=== PATIENT | female | born 1950 | race African-American/Black ===

== ENCOUNTER 2023-09-14 13:31 | Inpatient (IN) | payer MEDICARE, MEDICAID ==
[~2023-09-14] VITALS: Ht 160 cm; Wt 75.0 kg
[2023-09-14] MEDS ORDERED: ALBUTEROL (0.083%) 2.5MG/3ML NEB HHN STA (14:11)
[2023-09-14] MEDS ORDERED: METHYLPREDNISOLONE SOD SUCC 125MG/2ML (ACT-O-VIAL) IV STA (14:11)
[2023-09-14] MEDS ORDERED: IPRATROPIUM BROMIDE (0.02%) 0.5MG/2.5ML NEB HHN STA (14:11)
[2023-09-14] MEDS ORDERED: ASPIRIN 81MG TABLET PO ONE (14:15)
[2023-09-14] MEDS ORDERED: AMLODIPINE 10MG TABLET PO ONE (14:15)
[2023-09-14] MEDS ORDERED: AMLODIPINE 5MG TABLET PO NR (14:18)
[2023-09-14 14:35] VITALS: PULSE 104; RESP 24; O2SAT 99
[2023-09-14 15:56] LABS: BASOPHILS % 0.4 % (0.0-2.0); EOSINOPHILS % 0.4 % (0.0-5.0); HEMATOCRIT. 35.8 % (36.0-48.0); LYMPHOCYTES % 18.7 % (20.0-50.0); MEAN CORPUSCULAR HEMOGLOBIN 27.8 pg (28.0-32.0); MEAN CORPUSCULAR HGB CONC 30.8 g/dL (31.0-37.0); MEAN CORPUSCULAR VOLUME 90.4 fL (81.0-99.0); MEAN PLATELET VOLUME 6.7 fl (7.4-10.4); MONOCYTES % 4.5 % (2.0-8.0); PLATELET 324 x1000/uL (130-400); RED BLOOD CELL COUNT 3.96 mill/uL (4.2-5.4); RED CELL DISTRIBUTION WIDTH 14.2 % (11.6-14.6); WHITE BLOOD COUNT 12.1 x1000/uL (4.5-11.0)
[2023-09-14 16:10] LABS: ALANINE AMINOTRANSFERASE < 7 IU/L (10-49); ALBUMIN 4.1 g/dL (3.2-4.8); ASPARTATE AMINOTRANSFERASE 15 IU/L (<34); BILIRUBIN TOTAL 0.3 mg/dL (0.1-1.0); CALCIUM 9.3 mg/dL (8.7-10.4); CARBON DIOXIDE 29 mEq/L (21-32); CHLORIDE 103 mEq/L (98-107); CREATININE 0.6 mg/dL (0.6-1.0); GLUCOSE 199 mg/dL (70-105); POTASSIUM 3.3 mEq/L (3.5-5.1); PROTEIN TOTAL 7.7 g/dL (6.0-8.3); SODIUM 141 mEq/L (136-145); TROPONIN I HIGH SENSITIVITY 4 ng/L (3.0-34)
[2023-09-14 16:16] LABS: UREA NITROGEN BLOOD < 5 mg/dL (9-23)
[2023-09-14 19:01] LABS: TROPONIN I HIGH SENSITIVITY 4 ng/L (3.0-34)
[2023-09-14 21:02] VITALS: BP 100/39; PULSE 102; RESP 20; TEMP 98.1
[2023-09-14 21:35] VITALS: BP 100/39; PULSE 102; RESP 20; TEMP 98.1
[2023-09-14] MEDS ORDERED: DEXTROSE 50% WATER 50ML SYRINGE IV PRN ×2 (22:15)
[2023-09-14] MEDS ORDERED: ACETAMINOPHEN 650MG/20.3ML UDC GT PRN (22:15)
[2023-09-14] MEDS ORDERED: CLONIDINE 0.1MG TABLET PO PRN (22:15)
[2023-09-14] MEDS ORDERED: INSULIN GLARGINE 100 UNITS/ML SUBCUT SCH (22:15)
[2023-09-14] MEDS ORDERED: ONDANSETRON HCL 4MG/2ML INJ IV PRN (22:15)
[2023-09-14] MEDS ORDERED: MAGNESIUM/ALUMINUM HYDROXIDE/SIMETHICONE 30ML UDC PO PRN (22:15)
[2023-09-14] MEDS: METHYLPREDNISOLONE SOD SUCC 40MG/ML (ACT-O-VIAL) IV SCH (22:44)
[2023-09-14] MEDS: HYDROCODONE/ACETAMINOPHEN 5/325MG TABLET PO PRN (22:44)
[2023-09-15] VITALS (11 sets, daily range): BP systolic 110–140; BP diastolic 54–74; PULSE 85–99; RESP 18–22; TEMP 97.5–98.6; O2SAT 94–97
[2023-09-15] MEDS: IPRATROPIUM/ALBUTEROL 0.5-3(2.5)MG/3ML NEB HHN SCH ×5 (04:00→21:12)
[2023-09-15] MEDS: HYDROCODONE/ACETAMINOPHEN 5/325MG TABLET PO PRN ×5 (04:46→23:26)
[2023-09-15] MEDS: OMEPRAZOLE 20MG CAPSULE EXTENDED RELEASE PO SCH (06:06)
[2023-09-15] MEDS: METHYLPREDNISOLONE SOD SUCC 40MG/ML (ACT-O-VIAL) IV SCH ×2 (06:07→14:06)
[2023-09-15] MEDS: BLOOD SUGAR DIAGNOSTIC STRIP TEST SCH ×4 (06:32→20:16)
[2023-09-15] MEDS: INSULIN LISPRO 100 UNITS/ML SUBCUT SCH ×4 (06:32→20:16)
[2023-09-15 07:55] LABS: BASOPHILS % 0.2 % (0.0-2.0); HEMATOCRIT. 32.1 % (36.0-48.0); HEMOGLOBIN. 10.1 g/dL (12.0-16.0); LYMPHOCYTES % 21.7 % (20.0-50.0); MEAN CORPUSCULAR HEMOGLOBIN 28.2 pg (28.0-32.0); MEAN CORPUSCULAR HGB CONC 31.6 g/dL (31.0-37.0); MEAN CORPUSCULAR VOLUME 89.3 fL (81.0-99.0); NEUTROPHILS % 75.1 % (40.0-76.0); PLATELET 312 x1000/uL (130-400); RED CELL DISTRIBUTION WIDTH 14.3 % (11.6-14.6); WHITE BLOOD COUNT 7.6 x1000/uL (4.5-11.0)
[2023-09-15 07:56] LABS: ALANINE AMINOTRANSFERASE < 7 IU/L (10-49); ALBUMIN 4.1 g/dL (3.2-4.8); ASPARTATE AMINOTRANSFERASE 17 IU/L (<34); BILIRUBIN TOTAL 0.3 mg/dL (0.1-1.0); CALCIUM 9.3 mg/dL (8.7-10.4); CARBON DIOXIDE 28 mEq/L (21-32); CHLORIDE 103 mEq/L (98-107); CREATININE 0.5 mg/dL (0.6-1.0); GLUCOSE 154 mg/dL (70-105); PHOSPHORUS 2.7 mg/dL (2.5-4.9); POTASSIUM 3.8 mEq/L (3.5-5.1); PROTEIN TOTAL 7.4 g/dL (6.0-8.3); SODIUM 139 mEq/L (136-145); TROPONIN I HIGH SENSITIVITY 6 ng/L (3.0-34); UREA NITROGEN BLOOD 7 mg/dL (9-23)
[2023-09-15 08:37] LABS: BILIRUBIN DIRECT < 0.1 mg/dL (<=3.0)
[2023-09-15] MEDS: ENOXAPARIN 40MG/0.4ML SYR SUBCUT SCH (09:03)
[2023-09-15] MEDS ORDERED: FAMOTIDINE 20MG/2ML VIAL IV SCH (15:00)
[2023-09-15] MEDS ORDERED: INFLUENZA VACCINE 05/PF 0.5 ML SYRINGE IM ONE (15:00)
[2023-09-15] MEDS ORDERED: MONTELUKAST SODIUM 10MG TABLET PO SCH (17:00)
[2023-09-15 18:17] LABS: CLARITY URINE TURBID (CLEAR); COLOR URINE YELLOW (YELLOW); GLUCOSE URINE NEGATIVE (NEGATIVE); KETONES URINE NEGATIVE (NEGATIVE); LEUKOCYTE ESTERASE URINE NEGATIVE (NEGATIVE); NITRITE URINE NEGATIVE (NEGATIVE); OCCULT BLOOD URINE NEGATIVE (NEGATIVE); PH URINE 5.5 (4.5-8.0); PROTEIN URINE 1+ (NEGATIVE); SPECIFIC GRAVITY URINE 1.027 (1.005-1.030); UROBILINOGEN URINE 0.2 E.U./dL (0.2-1.0)
[2023-09-15 18:35] LABS: *AMPHETAMINES SCREEN URINE NEGATIVE (NEGATIVE); *BARBITURATES SCREEN URINE NEGATIVE (NEGATIVE); *BENZODIAZEPINES SCREEN URINE NEGATIVE (NEGATIVE); *COCAINE SCREEN URINE NEGATIVE (NEGATIVE); CANNABINOID URINE SCREEN NEGATIVE (NEGATIVE); ECSTASY MDMA SCREEN URINE NEGATIVE (NEGATIVE); METHADONE URINE SCREEN Neg (NEGATIVE); OPIATES URINE SCREEN PRESUMPTIVE POSITIVE (NEGATIVE); PHENCYCLIDINE URINE SCREEN NEGATIVE (NEGATIVE)
[2023-09-15 18:58] LABS: BACTERIA URINE NONE SEEN; RBC URINE 0-2 /hpf (0-2); SQUAMOUS EPITHELIAL CELL URINE 1+ /lpf (RARE/1+); WBC URINE 0-2 /hpf (0-2)
[2023-09-15] MEDS ORDERED: FAMOTIDINE 20MG TABLET PO SCH (21:00)
[2023-09-15] MEDS: BUDESONIDE 0.5MG/2ML NEB HHN SCH (21:13)
[2023-09-16] VITALS: BP 132/71; PULSE 92; RESP 18; TEMP 99.5
[2023-09-16 04:00] VITALS: BP 122/59; PULSE 97; RESP 18; TEMP 99.5
[2023-09-16] MEDS: BLOOD SUGAR DIAGNOSTIC STRIP TEST SCH ×2 (05:39→11:44)
[2023-09-16] MEDS: INSULIN LISPRO 100 UNITS/ML SUBCUT SCH (05:39)
[2023-09-16] MEDS: OMEPRAZOLE 20MG CAPSULE EXTENDED RELEASE PO SCH (05:39)
[2023-09-16] MEDS: HYDROCODONE/ACETAMINOPHEN 5/325MG TABLET PO PRN (05:39)
[2023-09-16 06:46] LABS: HEMATOCRIT. 32.3 % (36.0-48.0); HEMOGLOBIN. 10.7 g/dL (12.0-16.0); LYMPHOCYTES % 22.4 % (20.0-50.0); MEAN CORPUSCULAR HEMOGLOBIN 28.7 pg (28.0-32.0); MEAN CORPUSCULAR HGB CONC 33.1 g/dL (31.0-37.0); MEAN CORPUSCULAR VOLUME 86.5 fL (81.0-99.0); MEAN PLATELET VOLUME 6.6 fl (7.4-10.4); MONOCYTES % 9.7 % (2.0-8.0); NEUTROPHILS % 67.9 % (40.0-76.0); PLATELET 303 x1000/uL (130-400); RED BLOOD CELL COUNT 3.73 mill/uL (4.2-5.4); RED CELL DISTRIBUTION WIDTH 14.4 % (11.6-14.6); WHITE BLOOD COUNT 9.1 x1000/uL (4.5-11.0)
[2023-09-16 08:05] VITALS: BP 121/56; PULSE 78; RESP 18; TEMP 99.5
[2023-09-16 08:23] LABS: SODIUM 139 mEq/L (136-145)
[2023-09-16 08:24] LABS: CALCIUM 9.4 mg/dL (8.7-10.4); CARBON DIOXIDE 30 mEq/L (21-32); CHLORIDE 102 mEq/L (98-107); CREATININE 0.5 mg/dL (0.6-1.0); GLUCOSE 109 mg/dL (70-105); POTASSIUM 3.9 mEq/L (3.5-5.1); UREA NITROGEN BLOOD 13 mg/dL (9-23)
[2023-09-16] MEDS: ENOXAPARIN 40MG/0.4ML SYR SUBCUT SCH (08:25)
[2023-09-16 09:31] VITALS: PULSE 77; RESP 18; O2SAT 93
[2023-09-16] MEDS: IPRATROPIUM/ALBUTEROL 0.5-3(2.5)MG/3ML NEB HHN SCH (09:31)
[2023-09-16] MEDS: BUDESONIDE 0.5MG/2ML NEB HHN SCH (09:31)
[2023-09-16 09:58] LABS: PHOSPHORUS 2.3 mg/dL (2.5-4.9)
[2023-09-16] MEDS ORDERED: DEXAMETHASONE 4MG TABLET PO SCH (20:00)
== END 2023-09-16 11:30 | disposition left against medical advice (07) | DRG 189 ==
LOC: ER 13:31 → 7EST 17:35
PROVIDERS: ADMIT Internal Medicine; ATTEND Internal Medicine
DX: J96.00 Acute respiratory failure, unspecified whether with hypoxia or hypercapnia (principal); J44.1 Chronic obstructive pulmonary disease with (acute) exacerbation; D72.829 Elevated white blood cell count, unspecified; D64.9 Anemia, unspecified; F17.210 Nicotine dependence, cigarettes, uncomplicated; Z20.822 Contact with and (suspected) exposure to COVID-19
CPT/HCPCS: 36415; 71045; 80048; 80053; 80076; 80305; 81003; 82962; 83036; 83735; 83880; 84100; 84484; 85025; 87426; 87804; 93005; 93970; 94640; 94644; 99285; C1893; J1650; J2920; J2930; J3490; J7626; J8540